=== PATIENT | female | born 1985 | race American Indian/Alaskan Native ===

== ENCOUNTER 2017-02-20 09:14 | Emergency (ER) | payer BC ==
[2017-02-20 09:32] VITALS: BP 115/77
--- NOTE | 2017-02-20 10:21 | XRay Report ---
LEFT ANKLE RADIOGRAPHS INDICATION: Left ankle pain and swelling. COMPARISON: None similar. FINDINGS: AP, lateral and oblique left ankle radiographs demonstrate intact mortise, malleoli and talar dome contour. Mild soft tissue swelling may be present medially just below the malleolus and some questionably anteriorly. CONCLUSION: Left ankle soft tissue swelling/injury possible without acute bony abnormality, as described. Please correlate. Thank you for the opportunity to participate in this patient's care.
[2017-02-20] MEDS ORDERED: MOTRIN PO ONE (12:10)
--- NOTE | 2017-02-20 12:14 | Emergency Department Report ---
ED Lower Extremity HPI - General Chief Complaint: Extremity Injury, Lower Stated Complaint: LT SWOLLEN ANKLE /PAIN Time Seen by Provider: 02/20/17 12:08 Source: patient Mode of arrival: Ambulatory Limitations: No Limitations - History of Present Illness Initial Comments: 31-year-old female comes in for left ankle pain and swelling for 3 days. Patient's unaware of any trauma to her ankle. She said she woke up about 2 days ago and noted she started having some pain and swelling and by the third day she was not able to bear weight on her left ankle. Patient cannot recall that she has stepped or twisted her ankle. Patient pushes taken no medication she only used some [id number] Abie balm ointment to her ankle. Patient denies any past medical history currently takes no medications. MD Complaint: ankle injury Injury: Ankle: Left Type of Injury: unknown Place: home Severity scale (0 -10): 10 Improves With: cold therapy Worsens With: weight bearing, movement, palpation - Related Data Previous Rx's Medication Instructions Recorded Last Taken Type Ibuprofen [Motrin 600 MG tab] 600 mg PO Q8H PRN #30 tablet 02/20/17 Unknown Rx Allergies Allergy/AdvReac Type Severity Reaction Status Date / Time Penicillins Allergy Unknown Verified 02/06/14 08:19 sulfamethoxazole Allergy Shortness Verified 02/06/14 08:19 [From Bactrim] of Breath trimethoprim [From Bactrim] Allergy Shortness Verified 02/06/14 08:19 of Breath ED Review of Systems ROS: Stated complaint: LT SWOLLEN ANKLE /PAIN Other details as noted in HPI ED Past Medical Hx - Past Medical History Previous Medical History?: Yes Hx Hypertension: No Hx HIV: No Additional medical history: Ulcerative colitis - Surgical History Past Surgical History?: No - Social History Smoking Status: Never Smoker Substance Use Type: Non Opiate Pain - Medications Home Medications: Home Medications Medication Instructions Recorded Confirmed Last Taken Type Ibuprofen [Motrin 600 MG tab] 600 mg PO Q8H PRN #30 tablet 02/20/17 Unknown Rx ED Physical Exam - General Limitations: No Limitations ED Course Vital Signs 02/20/17 09:30 Temperature 98.2 F Pulse Rate 76 Respiratory 16 Rate Blood Pressure 115/77 O2 Sat by Pulse 100 Oximetry Critical care attestation.: If time is entered above; I have spent that time in minutes in the direct care of this critically ill patient, excluding procedure time. ED Disposition Clinical Impression: Left lateral ankle pain Disposition: DISCHARGED TO HOME OR SELFCARE Is pt being admited?: No Does the pt Need Aspirin: No Condition: Stable Additional Instructions: Please wear an Tani bandage, please take pain medication as prescribed. Follow- up with her primary care provider in 3-5 days I have listed one for [facility] do not have one. X-ray was negative for any acute fractures or dislocations. Prescriptions: Ibuprofen [Motrin 600 MG tab] 600 mg PO Q8H PRN #30 tablet PRN Reason: Pain Referrals: PRIMARY CAREMD [Primary Care Provider] - 3-5 Days RAYMOND HODGES MD [Staff Physician] - 3-5 Days Forms: Work/School Release Form(ED)
== END 2017-02-20 13:04 | disposition home or self-care (01) ==
LOC: ED 09:14
DX: M25.572 Pain in left ankle and joints of left foot (principal); Z88.0 Allergy status to penicillin; Z88.8 Allergy status to other drugs, medicaments and biological substances
CPT/HCPCS: 99284